=== PATIENT | male | born 1950 | race Caucasian/White ===

== ENCOUNTER → 2021-12-17 | Outpatient (CLI) | payer MEDICARE, OTHER | LOC: RAD 09:54 | DX: M17.12 Unilateral primary osteoarthritis, left knee (principal) ==

== ENCOUNTER 2022-03-10 09:32 | Outpatient (RCR) | payer MEDICARE, OTHER | END 2022-04-08 | disposition home or self-care (01) | LOC: PT | DX: M17.12 Unilateral primary osteoarthritis, left knee (principal) ==

== ENCOUNTER 2023-05-21 09:57 | Outpatient (RCR) | payer MEDICARE, OTHER | END 2023-06-09 | disposition home or self-care (01) | LOC: PT | DX: M17.12 Unilateral primary osteoarthritis, left knee (principal); Z96.652 Presence of left artificial knee joint ==

== ENCOUNTER 2023-06-10 08:00 | Outpatient (RCR) | payer MEDICARE, OTHER | END 2023-07-02 17:00 | disposition home or self-care (01) | LOC: PT 08:00 | DX: M17.12 Unilateral primary osteoarthritis, left knee (principal); Z96.652 Presence of left artificial knee joint ==

== ENCOUNTER → 2023-11-24 | Outpatient (CLI) | payer MEDICARE ==
[2023-11-24 15:26] LABS: ALBUMIN 4.4 g/dL (3.4-4.8)
[2023-11-24 15:27] LABS: CALCIUM 10.5 mg/dL (8.3-10.5)
[2023-11-24 15:29] LABS: TOTAL PROTEIN 6.9 g/dL (6.2-8.1)
[2023-11-24 15:31] LABS: TOTAL BILIRUBIN 0.5 mg/dL (0.2-1.2)
== END ==
LOC: LAB 15:04
PROVIDERS: Internal Medicine
DX: E78.2 Mixed hyperlipidemia (principal); I10 Essential (primary) hypertension

== ENCOUNTER → 2023-11-25 | Outpatient (CLI) | payer MEDICARE ==
[2023-11-25 08:45] LABS: ALBUMIN 4.5 g/dL (3.4-4.8)
[2023-11-25 08:46] LABS: CALCIUM 10.5 mg/dL (8.3-10.5)
[2023-11-25 08:49] LABS: TOTAL BILIRUBIN 0.4 mg/dL (0.2-1.2)
== END ==
LOC: LAB 08:28
PROVIDERS: Internal Medicine
DX: E78.2 Mixed hyperlipidemia (principal)

== ENCOUNTER → 2024-02-07 | Outpatient (CLI) | payer MEDICARE ==
[2024-02-07 15:03] LABS: BASO # 0.03 K/mm3 (0.02-0.10); EOS # 0.18 K/mm3 (0.04-0.40); EOS % 3.2 % (0.0-4.0); HEMATOCRIT 43.9 % (42.0-52.0); HEMOGLOBIN 14.8 g/dL (13.5-18.0); LYMPH# 1.36 K/mm3 (1.50-4.00); MEAN CELL VOLUME 100 fl (78-100); MEAN CORPUSCULAR HEMOGLOBIN 34 pg (27-31); MEAN CORPUSCULAR HGB CONC 34 g/dL (33-37); MEAN PLATELET VOLUME 9.6 fl (7.4-10.4); MONO # 0.72 K/mm3 (0.20-0.80); NEU # 3.37 K/mm3 (1.40-6.50); PLATELET COUNT 193 K/mm3 (130-400); RED BLOOD COUNT 4.38 M/mm3 (4.20-5.60); RED CELL DISTRIBUTION WIDTH 12.6 % (11.5-14.5); WHITE BLOOD COUNT 5.7 K/mm3 (4.8-10.8)
[2024-02-07 15:05] LABS: ALBUMIN 4.3 g/dL (3.4-4.8)
[2024-02-07 15:06] LABS: CALCIUM 9.8 mg/dL (8.3-10.5)
[2024-02-07 15:07] LABS: TOTAL PROTEIN 6.9 g/dL (6.2-8.1)
[2024-02-07 15:09] LABS: TOTAL BILIRUBIN 0.4 mg/dL (0.2-1.2)
[2024-02-07 15:14] LABS: MAGNESIUM 1.95 mg/dL (1.60-2.60)
[2024-02-07 23:20] LABS: TESTOSTERONE 255 ng/dL (221-716)
[2024-02-07 23:30] LABS: HEPATITIS C VIRUS ANTIBODY Negative (Nonreactiv)
== END ==
LOC: LAB 14:48
PROVIDERS: Internal Medicine
DX: Z11.59 Encounter for screening for other viral diseases (principal); Z12.5 Encounter for screening for malignant neoplasm of prostate; Z12.11 Encounter for screening for malignant neoplasm of colon; I10 Essential (primary) hypertension; E78.2 Mixed hyperlipidemia; F52.21 Male erectile disorder; E03.9 Hypothyroidism, unspecified; K90.9 Intestinal malabsorption, unspecified

== ENCOUNTER → 2024-02-15 | Outpatient (CLI) | payer MEDICARE | LOC: LAB 13:52 | DX: Z12.11 Encounter for screening for malignant neoplasm of colon (principal); Z12.5 Encounter for screening for malignant neoplasm of prostate; I10 Essential (primary) hypertension; E78.2 Mixed hyperlipidemia; F52.21 Male erectile disorder; E03.9 Hypothyroidism, unspecified; K90.9 Intestinal malabsorption, unspecified ==

== ENCOUNTER → 2024-05-08 | Day surgery (SDC) | payer MEDICARE ==
[~2024-05-08] MED LIST: Lidocaine PF 2% (20 MG/ML) 2 ML VIAL ONE
== END | disposition home or self-care (01) ==
LOC: MSO 08:08
DX: Z12.11 Encounter for screening for malignant neoplasm of colon (principal); Z79.82 Long term (current) use of aspirin; Z86.73 Personal history of transient ischemic attack (TIA), and cerebral infarction without residual deficits
CPT/HCPCS: G0121; 00812; J2704; J7120

== ENCOUNTER 2024-08-12 11:47 | Emergency (ER) | payer MEDICARE ==
[~2024-08-12] VITALS: Ht 177.8 cm; Wt 94.5 kg
[2024-08-12] MEDS ORDERED: HCTZ 25MG25 MG PO (11:56)
[2024-08-12] MEDS ORDERED: LOSARTAN POTAS100 MG PO (11:56)
[2024-08-12] MEDS ORDERED: ROSUVASTATIN CA40 MG PO (11:57)
[2024-08-12] MEDS ORDERED: LEVOTHYROXINE0.2 MG PO (11:57)
[2024-08-12] MEDS ORDERED: PANTOPRAZOLE SO20 M1 PO (11:57)
[2024-08-12] MEDS ORDERED: ISOSORBIDE MONO60 M2 PO (11:58)
[2024-08-12 12:14] LABS: BASO # 0.03 K/mm3 (0.02-0.10); EOS # 0.12 K/mm3 (0.04-0.40); EOS % 1.4 % (0.0-4.0); HEMATOCRIT 41.5 % (42.0-52.0); HEMOGLOBIN 14.2 g/dL (13.5-18.0); LYMPH# 0.78 K/mm3 (1.50-4.00); MEAN CELL VOLUME 100 fl (78-100); MEAN CORPUSCULAR HEMOGLOBIN 34 pg (27-31); MEAN CORPUSCULAR HGB CONC 34 g/dL (33-37); MEAN PLATELET VOLUME 9.7 fl (7.4-10.4); MONO # 0.97 K/mm3 (0.20-0.80); NEU # 6.43 K/mm3 (1.40-6.50); PLATELET COUNT 210 K/mm3 (130-400); RED BLOOD COUNT 4.17 M/mm3 (4.20-5.60); RED CELL DISTRIBUTION WIDTH 12.1 % (11.5-14.5); WHITE BLOOD COUNT 8.4 K/mm3 (4.8-10.8)
[2024-08-12] MEDS ORDERED: fentaNYL 100 MCG/2 ML VIAL IV ONE (12:30)
[2024-08-12] MEDS ORDERED: Ketorolac 30 MG/ML VIAL IV ONE (12:30)
[2024-08-12 12:32] LABS: ALBUMIN 4.3 g/dL (3.4-4.8)
[2024-08-12 12:33] LABS: CALCIUM 9.3 mg/dL (8.3-10.5)
[2024-08-12 12:34] LABS: TOTAL PROTEIN 7.5 g/dL (6.2-8.1)
[2024-08-12 12:36] LABS: TOTAL BILIRUBIN 0.4 mg/dL (0.2-1.2)
[2024-08-12] MEDS ORDERED: NS 1,000 ML IV SCH (13:00)
[2024-08-12] MEDS ORDERED: PERCOCET 325 MG1 TA2 PO (16:15)
[2024-08-12] MEDS ORDERED: FLOMAX0.4 MG PO (16:15)
[2024-08-12] MEDS ORDERED: ZOFRAN ODT4 MG PO (16:15)
[2024-08-12 16:25] VITALS: BP 187/94
[2024-08-12] MEDS ORDERED: Home oxyCODONE/Acetaminophen 5/325 MG #4 TAB/PACK PO ONE (16:30)
== END 2024-08-12 16:29 | disposition home or self-care (01) ==
LOC: ED 11:47
PROVIDERS: Family Medicine
DX: I12.9 Hypertensive chronic kidney disease with stage 1 through stage 4 chronic kidney disease, or unspecified chronic kidney disease (principal); N18.9 Chronic kidney disease, unspecified; N13.2 Hydronephrosis with renal and ureteral calculous obstruction; Z86.73 Personal history of transient ischemic attack (TIA), and cerebral infarction without residual deficits
CPT/HCPCS: J1885; J3010; J7030